=== PATIENT | female | born 1985 | race Caucasian/White ===

== ENCOUNTER 2021-07-27 21:04 | Emergency (ER) | payer OTHER, MEDICAID, SELFPAY ==
[2021-07-27 21:10] VITALS: BP 144/87; PULSE 81; RESP 14; TEMP 36.6; O2SAT 98
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
[2021-07-28] MEDS: IBUPROFEN 400 MG TABLET PO (00:28)
[2021-07-28] MEDS: OXYCODONE/ACETAMINOPHEN 5/325 TABLET 1 TAB PO (00:28)
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
[2021-07-28 04:41] VITALS: BP 138/85; PULSE 80; RESP 16; O2SAT 99
== END 2021-07-28 04:42 | disposition home or self-care (01) ==
PROVIDERS: Emergency Provider Emergency Medicine
DX: S06.0X9A Concussion with loss of consciousness of unspecified duration, initial encounter (principal); S16.1XXA Strain of muscle, fascia and tendon at neck level, initial encounter; R68.84 Jaw pain; Y04.2XXA Assault by strike against or bumped into by another person, initial encounter
CPT/HCPCS: 70450; 70486; 72125; 99283; 99284